=== PATIENT | female | born 1945 | race Caucasian/White ===

== ENCOUNTER 2019-04-16 21:53 | Emergency (ER) | payer MEDICARE, BC ==
[2019-04-17 00:08] LABS: ABS Eosinophils 0.1 10^3/ul (0-0.6); ABS Lymphocytes 2.1 10^3/ul (1.0-4.8); ABS Monocytes 0.6 10^3/ul (0-0.8); ABS Neutrophils 3.2 10^3/ul (1.5-7.7); Eosinophil % 1.6 %; Hematocrit 45 % (35-47); Hemoglobin 15.4 g/dL (12.0-16.0); Lymphocyte % 34.8 %; Mean Corpuscular HGB Conc 34 g/dL (31-36); Mean Corpuscular Hemoglobin 32 pg (27-31); Mean Corpuscular Volume 94 fL (80-97); Nucleated Red Blood Cells % 0.1; Platelet Count 160 10^3/uL (150-450); Red Blood Count 4.79 10^6 /uL (3.70-4.87); Red Cell Distribution Width 15 % (10-15); White Blood Count 6.1 10^3/uL (3.5-10.8)
[2019-04-17 00:20] VITALS: BP 142/88
[2019-04-17 00:24] LABS: ALT 13 U/L (7-52); Albumin 4.2 g/dL (3.2-5.2); Albumin/Globulin Ratio 1.4 (1-3); Alkaline Phosphatase 100 U/L (34-104); BUN/Creatinine Ratio 21.9 (8-20); Blood Urea Nitrogen 21 mg/dL (6-24); CO2 Carbon Dioxide 26 mmol/L (22-32); Calcium 9.9 mg/dL (8.6-10.3); Chloride 106 mmol/L (101-111); EGFR African American 68.9 (>60); Globulin 2.9 g/dL (2-4); Glucose 116 mg/dL (70-100); Sodium 138 mmol/L (135-145); Total Protein 7.1 g/dL (6.4-8.9)
[2019-04-17 00:26] LABS: Troponin I 0.03 ng/mL (<0.04)
[2019-04-17 00:27] LABS: Anion Gap 6 mmol/L (2-11)
== END 2019-04-17 01:00 | disposition left against medical advice (07) ==
LOC: ED 21:53
DX: R07.9 Chest pain, unspecified (principal); Z53.21 Procedure and treatment not carried out due to patient leaving prior to being seen by health care provider
CPT/HCPCS: 36415; 80053; 84484; 85025; 85610; 93005